=== PATIENT | female | born 1960 | race Caucasian/White ===

== ENCOUNTER 2019-05-03 10:27 | Inpatient (IN) | payer BC, MEDICARE ==
[~2019-05-03] VITALS: Ht 172.7 cm; Wt 66.0 kg
[2019-05-05 09:23] VITALS: BP 111/72
== END 2019-05-05 12:00 | disposition home or self-care (01) | DRG 520 ==
LOC: OUT 10:27 → 4NOR 18:29 → OUT 18:56 → 4NOR 18:57
PROVIDERS: ADMIT Neurological Surgery; ATTEND Neurological Surgery
PROC: 00NY0ZZ Release Lumbar Spinal Cord, Open Approach (ICD-10-PCS; principal; 2019-05-03)
PROC: 01NB0ZZ Release Lumbar Nerve, Open Approach (ICD-10-PCS; 2019-05-03)
DX: M48.061 Spinal stenosis, lumbar region without neurogenic claudication (principal); M41.9 Scoliosis, unspecified; M47.26 Other spondylosis with radiculopathy, lumbar region
CPT/HCPCS: 36415; 72100; 76000; J7042; 71045; 80048; 82800; 82803; 82810; 82947; 82962; 84132; 85018; 85025; 85610; 85730; C1729; G0378; J1170; J1650; J2704; J3010; J3370; J3480; J8501; J1200; J1815; J2370; J7120